=== PATIENT | male | born 1950 | race African-American/Black ===

== ENCOUNTER 2020-02-09 12:31 | Emergency (ER) | payer OTHER, MEDICAID ==
[~2020-02-09] VITALS: Ht 172.7 cm; Wt 75.0 kg
[2020-02-09] MEDS ORDERED: ONDANSETRON HCL 4MG/2ML INJ IV STA (13:29)
[2020-02-09] MEDS ORDERED: SODIUM CHLORIDE 0.9% 1,000 ML IV ONE (13:29)
[2020-02-09] MEDS ORDERED: KETOROLAC 30MG/ML VIAL IV STA (13:29)
[2020-02-09] MEDS ORDERED: INSULIN REGULAR (HUMULIN R) UD 100 UNITS/ML SYR IV ONE (13:45)
[2020-02-09 14:19] LABS: CLARITY URINE CLEAR (CLEAR); COLOR URINE YELLOW (YELLOW); KETONES URINE NEGATIVE (NEGATIVE); LEUKOCYTE ESTERASE URINE NEGATIVE (NEGATIVE); NITRITE URINE NEGATIVE (NEGATIVE); OCCULT BLOOD URINE NEGATIVE (NEGATIVE); PH URINE 5.5 (4.5-8.0); PROTEIN URINE NEGATIVE (NEGATIVE); UROBILINOGEN URINE 0.2 E.U./dL (0.2-1.0)
[2020-02-09 14:23] LABS: BASOPHILS % 0.9 % (0.0-2.0); EOSINOPHILS % 0.3 % (0.0-5.0); HEMATOCRIT. 42.2 % (42.0-52.0); HEMOGLOBIN. 14.1 g/dL (14.0-18.0); LYMPHOCYTES % 13.9 % (20.0-50.0); MEAN CORPUSCULAR HEMOGLOBIN 34.8 pg (28.0-32.0); MEAN CORPUSCULAR VOLUME 104.3 fL (80.0-94.0); MEAN PLATELET VOLUME 9.8 fl (7.4-10.4); MONOCYTES % 2.6 % (2.0-8.0); NEUTROPHILS % 82.3 % (40.0-76.0); PLATELET 235 x1000/uL (130-400); RED BLOOD CELL COUNT 4.04 mill/uL (4.7-6.1); RED CELL DISTRIBUTION WIDTH 12.9 % (11.6-14.6)
[2020-02-09 14:28] LABS: CHLORIDE 103 mEq/L (98-107)
[2020-02-09 14:32] LABS: ETHANOL BLOOD < 10 mg/dL
[2020-02-09] MEDS ORDERED: INSULIN REGULAR (HUMULIN R) 300UNITS/3ML IV NR (14:45)
[2020-02-09 15:13] LABS: METHADONE URINE SCREEN NEGATIVE (NEGATIVE)
[2020-02-09 15:14] LABS: CANNABINOID URINE SCREEN NEGATIVE (NEGATIVE); OPIATES URINE SCREEN NEGATIVE (NEGATIVE); PHENCYCLIDINE URINE SCREEN NEGATIVE (NEGATIVE)
[2020-02-09 15:15] LABS: *AMPHETAMINES SCREEN URINE NEGATIVE (NEGATIVE); *BARBITURATES SCREEN URINE NEGATIVE (NEGATIVE); *BENZODIAZEPINES SCREEN URINE NEGATIVE (NEGATIVE); *COCAINE SCREEN URINE NEGATIVE (NEGATIVE)
[2020-02-09 15:20] VITALS: BP 147/88
== END 2020-02-09 17:14 | disposition home or self-care (01) ==
LOC: ER 12:31
DX: E11.65 Type 2 diabetes mellitus with hyperglycemia (principal); F12.10 Cannabis abuse, uncomplicated; R00.0 Tachycardia, unspecified; Z91.19 Patient's noncompliance with other medical treatment and regimen
CPT/HCPCS: 36415; 70450; 80053; 80305; 80320; 81003; 82962; 85025; 93005; 96361; 96374; 96375; 99285; J1885; J2405; J7030; J1815; G0480